=== PATIENT | female | born 1965 | race Hispanic/Latino ===

== ENCOUNTER 2018-09-16 12:08 | Emergency (ER) | payer OTHER, MEDICARE | END 2018-09-16 15:55 | disposition home or self-care (01) | LOC: EDH 12:08 | DX: S72.492A Other fracture of lower end of left femur, initial encounter for closed fracture (principal); Z90.49 Acquired absence of other specified parts of digestive tract; Z90.710 Acquired absence of both cervix and uterus; X50.1XXA Overexertion from prolonged static or awkward postures, initial encounter; Y93.89 Activity, other specified; Y92.89 Other specified places as the place of occurrence of the external cause; Y99.8 Other external cause status | CPT/HCPCS: 29505; 73552; 73560 ==